=== PATIENT | male | born 1990 | race Two or more races ===

== ENCOUNTER 2023-06-26 21:09 | Emergency (ER) | payer MEDICAID, OTHER ==
[~2023-06-26] VITALS: Ht 175.3 cm; Wt 247.0 kg
[2023-06-26 21:09] VITALS: BP 163/94; RESP 20; O2SAT 99
[2023-06-26] MEDS ORDERED: SODIUM CHLORIDE 0.9% 2,000 ML IV ONE (22:00)
[2023-06-26 22:07] LABS: Eosinophils # (auto) 0 10 ^3/uL (0-0.8); Eosinophils % (auto) 0.1 % (0.0-7.0); White Blood Cell 13.4 10^3/uL (4.4-10.8)
[2023-06-26 22:09] LABS: Basophils # (auto) 0 10 ^3/uL (0-0.2); Basophils % (auto) 0.3 % (0.0-2.0); Hematocrit 51.2 % (41.0-53.0); Lymphocytes # (auto) 1.4 10 ^3/uL (0.4-5.4); Lymphocytes % (auto) 10.8 % (10.0-50.0); Mean Corpuscular Hemoglobin 30.7 pg (28.0-32.0); Mean Corpuscular Hgb Conc. 35.2 g/dL (32.0-36.0); Mean Corpuscular Volume 87.2 fL (80.0-100.0); Monocytes # (auto) 0.7 10 ^3/uL (0-1.3); Monocytes % (auto) 5.5 % (0.0-12.0); Neutrophils # (auto) 11.2 10 ^3/uL (1.6-8.6); Neutrophils % (auto) 83.3 % (37.0-80.0); Nucleated Red Blood Cells % 0.2 %; Red Blood Cells 5.86 10^6/uL (4.5-5.90); Red Cell Distribution Width 13.5 % (11.8-14.3)
[2023-06-26 22:27] LABS: Acetaminophen < 2.0 UG/ML (10.0-20.0); Bilirubin, Total 0.7 mg/dL (0.2-1.0); Salicylate < 3.0 mg/dL (2.8-20.0); Total Protein 8.3 g/dL (5.7-8.2)
[2023-06-26 22:44] LABS: Magnesium 1.6 mg/dL (1.6-2.6)
[2023-06-26 22:47] LABS: Alanine Aminotransferase 30 U/L (7-40); Albumin 5.3 g/dL (3.2-4.8); Alkaline Phosphatase 100 U/L (46-116); Anion Gap 10 (5-15); Aspartate Aminotransferase 14 U/L (13-40); BUN/Creatinine Ratio 10.8 (10.0-20.0); Blood Alcohol < 3.0 mg/dL (<10); Blood Urea Nitrogen 11 mg/dL (9-23); Calcium 9.8 mg/dL (8.7-10.4); Carbon Dioxide 27 mmol/L (20-30); Chloride 102 mmol/L (98-107); Glucose 138 mg/dL (74-106); Potassium 3.1 mmol/L (3.5-5.1); Sodium 139 mmol/L (136-145)
[2023-06-26 23:12] VITALS: PULSE 119
[2023-06-27] MEDS ORDERED: POTASSIUM EFFERVESENT TAB 25 MEQ PO ONE (00:30)
[2023-06-27 04:49] LABS: Amphetamine Screen, Urine Neg (NEGATIVE); Barbiturate Scree,Urine Neg (NEGATIVE); Benzodiazephine Screen, Urine Neg (NEGATIVE); Cannabinoid Screen, Urine Neg (NEGATIVE); Cocaine Screen, Urine Neg (NEGATIVE); Opiate Scree,Urine Neg (NEGATIVE); Phencyclidine Screen, Urine Neg (NEGATIVE)
== END 2023-06-27 04:53 | disposition left against medical advice (07) ==
LOC: ER 21:09 → EDBD 21:09 → ER 06-27 04:53
DX: T43.591A Poisoning by other antipsychotics and neuroleptics, accidental (unintentional), initial encounter (principal); F32.A Depression, unspecified; E87.6 Hypokalemia; R07.89 Other chest pain; I10 Essential (primary) hypertension; E11.9 Type 2 diabetes mellitus without complications; Y92.89 Other specified places as the place of occurrence of the external cause
CPT/HCPCS: 36415; 71045; 80053; 80307; 80320; 80329; 83735; 84484; 85025; 93005; 96360; 96361; 99285; J7030